=== PATIENT | male | born 1975 | race African-American/Black ===

== ENCOUNTER 2019-04-17 05:14 | Inpatient (IN) | payer OTHER ==
[2019-04-17] VITALS (16 sets, daily range): BP systolic 124–167; BP diastolic 70–109
[~2019-04-17] VITALS: Ht 171.4 cm; Wt 83.5 kg
[~2019-04-17 05:14] MED LIST: IBUPROFEN600 MG ORAL; ceFAZolin sod 2 GM in D5W 110 ML IVPB ONE
[2019-04-17] MEDS ORDERED: LR 1000ml 1,000 ML IVLG SCH (06:18)
[2019-04-17] MEDS ORDERED: Zemuron 50mg/5ml Inj IV ONE (06:25)
[2019-04-17] MEDS ORDERED: Labetalol 5mg/ml 20ml vial IV PRN (06:30)
[2019-04-17] MEDS ORDERED: Ketorolac 30mg Inj IV PRN ×2 (06:30)
[2019-04-17] MEDS ORDERED: Acetaminophen (Non formulary) 100 ML IV ONE (06:30)
[2019-04-17] MEDS ORDERED: DiphenhydrAMINE 50mg/ml Inj IVP PRN (06:30)
[2019-04-17] MEDS ORDERED: Atropine Sulfate 0.4mg/ml inj IVP PRN (06:30)
[2019-04-17] MEDS ORDERED: Midazolam 2mg/2ml Inj IVP PRN (06:30)
[2019-04-17] MEDS ORDERED: oxyCODONE HCL/Acetaminophen 5/325mg ORAL PRN (06:30)
[2019-04-17] MEDS ORDERED: HYDROcodone/Acetamin 7.5/325 tab ORAL PRN ×3 (06:30→07:30)
[2019-04-17] MEDS ORDERED: Hydromorphone 0.5mg/0.5ml inj IVP PRN (06:30)
[2019-04-17] MEDS ORDERED: LORazepam Inj 2mg/ml 1ml IV PRN (06:30)
[2019-04-17] MEDS ORDERED: fentaNYL 100 mcg/2 mL IV PRN (06:30)
[2019-04-17] MEDS ORDERED: Meperidine 50mg/ml Inj(FOR RIGORS ONLY) IVP PRN (06:30)
[2019-04-17] MEDS ORDERED: HYDROcodone/Acetamin 5/325 tab ORAL PRN ×2 (06:30→07:30)
[2019-04-17] MEDS ORDERED: Metoclopramide 10mg/2ml Inj IVP PRN ×2 (06:30→07:30)
[2019-04-17] MEDS ORDERED: Succinylcholine 20mg/ml 10ml vial ONE (06:41)
[2019-04-17] MEDS ORDERED: fentaNYL 100 mcg/2 mL IV ONE ×2 (06:44→09:43)
[2019-04-17] MEDS ORDERED: Vancomycin 1gm vial IVPB ONE (06:46)
[2019-04-17] MEDS ORDERED: Gelfoam Size TOPIC ONE (06:47)
[2019-04-17] MEDS ORDERED: Lidocaine 1% MPF 10mg/ml 5ml ONE (06:47)
[2019-04-17] MEDS ORDERED: Dexamethasone 4mg/ml vial ONE (06:47)
[2019-04-17] MEDS ORDERED: Thrombin 5000 units TOPIC ONE ×2 (06:47→08:53)
[2019-04-17] MEDS ORDERED: Sodium Chloride 10ml vial INJ ONE (06:47)
[2019-04-17] MEDS ORDERED: Bacitracin 50000 Units Vial ONE (06:47)
[2019-04-17] MEDS ORDERED: Lidocaine 1% Plain 30 ml INJ ONE ×2 (06:50→08:52)
[2019-04-17] MEDS ORDERED: Sterile Water Irrig 1000ml IRRIG ONE (07:00)
[2019-04-17] MEDS ORDERED: LR 1000ml ONE (07:00)
[2019-04-17] MEDS ORDERED: Propofol 1,000mg/ 100ml btl IV ONE (07:00)
--- NOTE | 2019-04-17 07:01 | Anethesia Preoperative Eval ---
Anesthesia Pre-op PMH/ROS General Date of Evaluation: Apr 17, 2019 Time of Evaluation: 07:01 Anesthesiologist: Amy ASA Score: ASA 2 Mallampati Score Class I : Soft palate, uvula, fauces, pillars visible Class II: Soft palate, uvula, fauces visible Class III: Soft palate, base of uvula visible Class IV: Only hard plate visible Mallampati Classification: Class II Surgeon: Amy Diagnosis: Neck Pain Surgical Procedure: ACDF C6-7, C5-6, ADR C4-5 Anesthesia History: none Family History: no anesthesia problems Allergies: Coded Allergies: No Known Allergies (Unverified , 04/16/19) Medications: see eMAR Patient NPO?: Yes NPO Date: Apr 16, 2019 NPO Time: 2300 Past Medical History Cardiovascular: Reports: HTN Anesthesia Pre-op Phys. Exam Physician Exam Last Vital Signs Date Time Temp Pulse Resp B/P (MAP) Pulse Ox O2 Delivery O2 Flow Rate FiO2 04/17/19 05:50 97.6 63 20 132/90 (104) 99 04/17/19 05:48 Room Air Constitutional: NAD Neurologic: CN 2-12 intact Cardiovascular: RRR Respiratory: CTA Gastrointestinal: S/NT/ND Airway Exam Mallampati Score: Class II MO: full ROM: limited Teeth: missing, intact Anesthesia Pre-op A/P Risk Assessment & Plan Assessment: ASA 2 Plan: GA, SED, GlideScope Go Status Change Before Surgery: No Pre-Antibiotics Dru Grams Ancef IV Given Within 1 Hr of Incision: Yes Time Given: 07:21 João Reyes MD Apr 17, 2019 07:01
--- NOTE | 2019-04-17 07:03 | Immediate Post-Op Evaluation ---
Immediate Post-Op Evalulation Immediate Post-Op Evalulation Procedure: ACDF C6-7, C5-6, ADR C4-5 Date of Evaluation: Apr 17, 2019 Time of Evaluation: 11:15 IV Fluids: 1000 LR Blood Products: 0 Estimated Blood Loss: 50 Urinary Output: 275 Blood Pressure Systolic: 146 Blood Pressure Diastolic: 85 Pulse Rate: 82 Respiratory Rate: 16 O2 Sat by Pulse Oximetry: 100 Temperature (Fahrenheit): 97.6 Pain Score (1-10): 2 Nausea: No Vomiting: No Complications 0 Patient Status: awake, reacts, patent, extubated, none Hydration Status: adequate Dru Grams Ancef IV Given Within 1 Hr of Incision: Yes Time Given: 07:21 João Reyes MD Apr 17, 2019 07:03
--- NOTE | 2019-04-17 07:18 | Pre-Procedure Note/Attestation ---
Pre-Procedure Note/Attestation Complete Prior to Procedure Planned Procedure: not applicable Procedure Narrative: Cervical 45 artificial disc replacement with C56,and 67 Anterior cervical discectomy and fusion Indications for Procedure Pre-Operative Diagnosis: C45,56,67 herniation Attestation I attest that I discussed the nature of the procedure; its benefits; risks and complications; and alternatives (and the risks and benefits of such alternatives ), prior to the procedure, with the patient (or the patient's legal registered representative). I attest that, if there was a reasonable possibility of needing a blood transfusion, the patient (or the patient's legal registered representative) was given the [facility] standardized written summary, pursuant to the [place] Blood Safety Act ([place] Health and Safety Code # 1645, as amended). I attest that I re-evaluated the patient just prior to the surgery and that there has been no change in the patient's H&P, except as documented below: Rick Martinez MD Apr 17, 2019 07:18
--- NOTE | 2019-04-17 07:19 | Brief Operative Note ---
Immediate Post Operative Note Operative Note Chief Complaint: neck pain and radiculopathy Pre-op Diagnosis: C45,56,67 herniation Procedure: Cervical 45 artificial disc replacement with C56,and 67 Anterior cervical discectomy and fusion Post-op Diagnosis: same as pre-op Findings: consistent w/pre-op dx studies Surgeon: Michelle Lard Tub Washer: Prosper Anesthesia: general Specimen: none Complications: none Condition: stable Fluids: IVF Estimated Blood Loss: minimal Drains: none Implant(s) used?: Yes - Nuvasive interlock cage 6x2, screws 13x6, prodisc c sz5 Rick Martinez MD Apr 17, 2019 07:19
[2019-04-17] MEDS ORDERED: Morphine Sulfate 4mg/ml Inj (IV USE ONLY) IV PRN ×2 (07:30)
[2019-04-17] MEDS ORDERED: HYDROmorphone 1mg/ml Carpuject IVP PRN (07:30)
[2019-04-17] MEDS ORDERED: Morphine Sulfate 2mg/ml Inj(IV/IM USE ONLY) IV PRN (07:30)
[2019-04-17] MEDS ORDERED: Milk of Magnesia 30ml Ud ORAL PRN (07:30)
[2019-04-17] MEDS ORDERED: Naloxone 0.4mg/ml Inj IVP PRN (07:30)
[2019-04-17] MEDS ORDERED: NS Irrig 1000ml IRRIG ONE (08:51)
--- NOTE | 2019-04-17 12:44 | NUR ---
NURSE NOTES: Patient arrived to unit at 1220, accompanied by RN. Received report from Radha LEBRON. Patient is awake but drowsy, arousable to voice, no acute distress noted, reporting no pain. Anterior cervical site with dermabond clean and intact, ice pack in place. VS assessed and stable. SCD's in place. Neuro check assessed intact, patient reporting no numbness/tingling in extremities. IV intact, patient. Family at bedside, updated on plan of care. Side rails upx3, bed low and locked, call light in reach. Will continue to monitor.
[2019-04-17] MEDS: Dexamethasone 4mg/ml vial IVP SCH ×2 (12:52→18:22)
[2019-04-17] MEDS: NS w/KCl 20mEq 1000ml 1,000 ML IV SCH ×2 (13:42→23:00)
--- NOTE | 2019-04-17 14:13 | Diagnostic Imaging Report ---
Indication: Intraoperative imaging Findings: 4 fluoroscopic views of the cervical spine were obtained. Anterior discectomy and fusion demonstrated at C5-6 and C6-7. Replacement of the disc at C4-5 noted. IMPRESSION: Intraoperative imaging
--- NOTE | 2019-04-17 15:05 | NUR ---
CASE MANAGEMENT:REVIEW 43 YR OLD MALE HERE FOR ELECTIVE SURGERY SI: NECK PAIN AND RADICULOPATHY 98.0 91 15 131/85 100% ON 3L/NC IS: CERVICAL DISC REPLACEMENT : TO MED/SURG 3 [facility]
[2019-04-17] MEDS: ceFAZolin sod 1 GM in D5W 55 ML IV SCH ×2 (15:17→22:36)
--- NOTE | 2019-04-17 16:41 | General Progress Note ---
Assessment/Plan Assessment/Plan: C45,56,67 herniation Cervical 45 artificial disc replacement with C56,and 67 Anterior cervical discectomy and fusion PLAN 1. incentive spirometry 2. SCD 3. PT evaluation and therapy 4. Hydration 5. Pain management 6. discharge once stable with outpatient follow up Subjective Allergies: Coded Allergies: No Known Allergies (Unverified , 04/16/19) Subjective asked to follow up post op Objective Last 24 Hour Vital Signs Date Time Temp Pulse Resp B/P (MAP) Pulse Ox O2 Delivery O2 Flow Rate FiO2 04/17/19 15:20 97.9 80 18 140/70 (93) 98 04/17/19 14:20 98.5 85 16 149/98 (115) 100 04/17/19 13:20 97.8 85 16 152/98 (116) 100 04/17/19 12:50 97.8 83 18 146/100 (115) 99 04/17/19 12:20 98.4 89 16 143/98 (113) 100 04/17/19 12:00 98.0 91 15 131/85 100 Nasal Cannula 3 04/17/19 11:45 82 19 138/85 100 Nasal Cannula 3 04/17/19 11:30 82 15 145/95 100 Nasal Cannula 3 04/17/19 11:20 84 20 141/86 100 Simple Mask 6 04/17/19 11:15 86 17 156/91 100 Simple Mask 6 04/17/19 11:10 88 16 142/109 100 Simple Mask 6 04/17/19 11:04 97.2 79 14 146/95 100 Simple Mask 6 04/17/19 11:04 82 16 100 04/17/19 05:50 97.6 63 20 132/90 (104) 99 04/17/19 05:48 Room Air Height (Feet): 5 Height (Inches): 7.50 Weight (Pounds): 184 Objective WDWN NAD clear breath sounds bilaterally without rhonchi or wheeze [id number] without MRG NABS nontender no HSM no CCE nonfocal Joe Cardenas MD Apr 17, 2019 16:41
--- NOTE | 2019-04-17 17:05 | NUR ---
NURSE NOTES: Patient seen by Dr. Cardenas, informed MD that patient's blood pressure is running in the 140's and 150's systolic. MD ordered for clonidine PRN. Order entered. Will continue to monitor.
[2019-04-17] MEDS: Docusate 100mg cap ORAL SCH (18:22)
--- NOTE | 2019-04-17 19:38 | NUR ---
HAND-OFF: Report given to Rolanda LEBRON. Patient is in stable condition.
--- NOTE | 2019-04-17 19:40 | NUR ---
NURSE NOTES: Received report from BERNARDINO Cesar. Patient alert, sitting up in bed, has been ambulating in room without difficulty. Neck incision intact, dry, GLASS CUTTER HAND. IV site intact and patent. Bed in low position, locked, side rails up x2, call light within reach. Will continue to monitor.
[2019-04-17] MEDS: Chloraseptic Spray 20mL Bottle ORAL PRN ×2 (19:57→22:40)
--- NOTE | 2019-04-17 22:00 | Operative Note - Dictated ---
DATE OF OPERATION: 04/17/2019 SURGEON: Rick Martinez M.D., Orthopaedic Spine Surgeon. PROBATION OFFICER: Jennifer Junior PREOPERATIVE DIAGNOSES: 1. Intractable neck pain. 2. Radiculopathy. 3. Herniation, C4-C5, C5-C6, C6-C7. 4. Neural foraminal stenosis, C4-C5, C5-C6, C6-C7. 5. Stenosis. POSTOPERATIVE DIAGNOSES: 1. Intractable neck pain. 2. Radiculopathy. 3. Herniation, C4-C5, C5-C6, C6-C7. 4. Neural foraminal stenosis, C4-C5, C5-C6, C6-C7. 5. Stenosis. PROCEDURE PERFORMED: 1. Anterior cervical discectomy and artificial disc replacement of C4-C5 using a Synthes ProDisc-C size 5 artificial disc replacement. 2. Anterior cervical discectomy and fusion of C5-C6 using NuVasive Interlock C size 6 PEEK cage and three 13 mm screws with Osteocel 1 mL allograft bone and local autograft. 3. Anterior cervical discectomy and fusion of C6-C7 using NuVasive Interlock C size 6 PEEK cage and three 13 mm screws with Osteocel 1 mL allograft bone and local autograft. 4. Use of intraoperative microscope. 5. Motor-evoked potential monitoring. 6. Somatosensory-evoked potential monitoring. 7. Supervision and interpretation of fluoroscopy. COMPLICATIONS: None. ANESTHESIA: General. ESTIMATED BLOOD LOSS: Less than 100 mL. INDICATIONS FOR SURGERY: This patient is a 43-year-old male, who has a history of diagnoses as listed above. As of result of this, the patient sustained intractable neck pain; radiculopathy; herniation of C4-C5, C5-C6, C6-C7; neural foraminal stenosis of C4-C5, C5-C6, C6-C7; and stenosis. We tried a course of conservative management, but despite this course, there was still a significant component of persistent, recalcitrant neck pain and arm pain. The MRI demonstrated significant neural foraminal compromise secondary to disc herniations at C4-C5, C5-C6, and C6-C7. We had a long discussion with Jonathan regarding the risks and benefits of surgery. Our discussion included but was not limited to nonoperative management, chiropractic management, another epidural steroid injection as well as definitive management in the form of surgery. We recommended an artificial disc replacement of cervical C4-C5 and anterior cervical discectomy and fusion of cervical C5-C6 and C6-C7 as final definitive management. We reviewed the risks and benefits of surgery with the patient. Our discussion included a comprehensive review of the clinical issues and the nature of the clinical decision. We reviewed the alternatives, including doing nothing. The patient elected to proceed accordingly with an artificial disc replacement of cervical C4-C5 and anterior cervical discectomy and fusion of cervical C5-C6 and C6-C7. We had a long discussion regarding the risks, alternatives, and benefits of surgery. Our description of the risks included a discussion in person as well as a signed consent which detailed all pertinent risks from the procedure itself. Briefly, our discussion included but was not limited to infection, bleeding, pseudarthrosis, spinal cord injury, neurovascular injury, dural tear, CSF leak, neuropathy, paralysis, permanent weakness/drop foot/drop arm, paresthesias, blindness, palsy, and weakness. The patient understood there may be a need for a revision surgery or additional procedures. Approach-related complications including dysphonia, dysphagia, blindness, permanent vocal cord and neural injury, hematoma, swallowing and breathing difficulty. Medical complications were reviewed including liver, kidney, shock, cardiopulmonary failure, anesthesia complications including , swelling, damage to the musculature, larynx/voice injury or loss, esophagus/throat, trachea, blood vessels and muscles/muscular sprain and lungs/pneumothorax during this surgical procedure; injury to deeper structures may be temporary or permanent. After this review of risks, the patient understood these and elected to proceed. A written and verbal consent was given. We discussed the pros and cons of all the alternatives. We discussed the uncertainties associated with the decision. Afterwards, I assessed the patient's understanding and explored their preferences. All questions were answered and no guarantees were given. Medical clearance was obtained prior to surgery. INTRAOPERATIVE FINDINGS: At C4-C5, there was a very large disc herniation, which was causing severe pressure on both the spinal cord and neural foramina bilaterally, right more than left sided. Upon dissection through the actual disc itself as we marginated towards the posterior margin of the disc, I noticed a tear in the PLL, which was approximately 20 degrees cephalad to caudad. This tear was mobilized with a Microsect 1-B curette and posterior to this tear, I noticed a very large herniated fragment, which was encroaching on the thecal sac and spinal cord completely, right-sided. Again, the tear was through the PLL and posterior to this, I noted herniated fragment and tissue. At C5-C6, I noted the disc to be soft, not calcified, not degenerated. Along the posterior margin of the PLL, there was a tear in the posterior longitudinal ligament. This tear was approximately 20-30 degrees cephalad to caudad on the right side of the neural foramina in the PLL. This was probed with Microsect 1-B and 2-B and posterior to this tear, I noted a large disc fragment, which was encroaching on the thecal sac and spinal cord, more on the right neural foramina. The disc itself was soft, mobile, and noncalcified, not degenerated. At C6-C7, there was a tear noted in the posterior longitudinal ligament. This tear was approximately 20 degrees cephalad to caudad, which was right-sided. Through this tear, I would state, it involved the junction of the central to the right side of the posterior longitudinal ligament along the lateral third margin. Once this tear was probed with Microsect 1-B and 2-B curettes, I noticed the posterior limb of the disc herniation, which was resected with a combination of Bullock pituitary, Kerrison rongeurs and this demonstrated significant pressure on the spinal cord posteriorly, which was very tight and flattened as a result of these herniations as well as the neural foramina, right more than left sided. This was very concerning from the standpoint of how much pressure we encountered. On the MRI, we evaluated that there was severe pressure, but this was even more significant than that. At the beginning of our case, we were able to obtain very mild response to his motor response, however, this was the maximum intensity of the electrosignals inputs. Throughout the case, there was no complication or any pressure applied to the thecal sac itself whatsoever; however, at the completion of the case, either he had too much sedation, but we were not able to obtain motor signals afterwards. DESCRIPTION OF PROCEDURE: Under the benefit of general endotracheal anesthesia and with the assistance of the entire operative team, the patient was moved from the rney onto the operative table in the supine position. The head was secured and carefully positioned appropriately. Bilateral arms were secured with Gel Pads and foam and all bony prominences were padded. For the bilateral lower extremities, SCD and KYARA hose were placed for DVT prophylaxis. A surgical timeout was called which corroborated our planned procedure of an artificial disc replacement of cervical C4-C5 and anterior cervical discectomy and fusion of cervical C5-C6 and C6-C7. Preoperative antibiotics were administered within 30 minutes of the incision for antibiotic prophylaxis. Using lateral fluoroscopic radiography, the operative levels were delineated. Next, the wound was prepped and draped with chlorhexidine and sterile drapes. An incision was based on lateral fluoroscopy and we centered our incision at the C4-to 7 interspace and next, using a standard Mena-Wong anterior-based approach, the incision was taken down through the skin and subcutaneous tissues until the vertebral bodies and their corresponding disc spaces were visualized. A needle was placed into the interspace to confirm placement of the operative interspace and we performed the remainder of procedure under microscopic visualization. Next, using bipolar and Bovie cautery to ensure meticulous hemostasis, the longus colli was mobilized bilaterally and retractors were placed deep to the longus colli bilaterally to address retraction. Next, we turned our attention to the radical anterior discectomy. This was initially performed at C4-C5 first by using a 15 blade scalpel followed by narrow pituitaries and a Microsect 5-B curette was used to denude the endplate of all cartilaginous tissue. Next, using a [employer] AM8 drill bit, the vertebral endplates were denuded of all residual cartilage in a myje-ew-udrk and jtlol-hb-vssqe fashion, and ultimately the posterior uncinate joints bilaterally and posterior osteophytic lips and margins were carefully denuded until clear visualization of the posterior longitudinal ligament was possible. An endplate preparation was performed in the exact same fashion using an intervertebral spray drier, sequential distraction was obtained throughout the disc space. We saw a tear/rent in the PLL and this was carefully mobilized and dissected using a Microsect 1-B curette until we visualized a discrete disc herniation with compression of the spinal cord as well as neural foramina bilaterally, right more than left sided. At C4-C5, there was a very large disc herniation, which was causing severe pressure on both the spinal cord and neural foramina bilaterally, right more than left sided. Upon dissection through the actual disc itself as we marginated towards the posterior margin of the disc, I noticed a tear in the PLL, which was approximately 20 degrees cephalad to caudad. This tear was mobilized with a Microsect 1-B curette and posterior to this tear, I noticed a very large herniated fragment, which was encroaching on the thecal sac and spinal cord completely, right-sided. Again, the tear was through the PLL and posterior to this, I noted herniated fragment and tissue. This neural foraminal compression was carefully resected using a Kerrison-1 and Kerrison-2 rongeurs until complete decompression of the spinal cord was visualized and complete decompression of the neural foramina and nerve root therein as well as the axilla and lateral margin of the nerve root was visualized and subsequently completely decompressed. The family was notified at one-hour intervals throughout the procedure to provide for consistent updates. We next turned our attention towards trialing our implant within the disc space. We initially tried size 5 and this ProDisc Cervical spacer fit well in regard to depth and width. This implant was opened and prepared. Next, under direct visualization, I confirmed excellent fit in respect to the anterior and posterior vertebral bodies, the uncinate joints, and in regard to toggle. Once satisfied with this placement on serial AP and lateral fluoroscopy, I turned my attention towards cutting our kisha. These were cut in the bones using a reciprocating drill and afterwards all free fragments of bone were irrigated. Next, FloSeal was placed into the interspace, then removed in its entirety and the implant was inserted using fluoroscopic guidance. Next, the Synthes ProDisc-C size 5 ADR was then carefully advanced and secured into the intervertebral space under direct visualization and with supervision of AP and lateral fluoroscopic views. Next we turned our attention to the radical anterior discectomy at the C5-C6 first by using a 15 blade scalpel followed by narrow pituitaries and a Microsect 5-B curette was used to denude the endplate of all cartilaginous tissue. Next, using a [employer] AM8 drill bit, the vertebral endplates were denuded of all cartilaginous tissue in a quie-jh-nibs and wuomf-ox-jqtnh fashion, and ultimately the posterior uncinate joints bilaterally and posterior osteophytic lips and margins were carefully denuded until wide and thorough visualization of the posterior longitudinal ligament was possible. At this level, the endplate preparation was performed in the exact same fashion using an intervertebral spray drier, sequential distraction was obtained throughout the disc space. We saw a tear/rent in the PLL which was concerning. At C5-C6, I noted the disc to be soft, not calcified, not degenerated. Along the posterior margin of the PLL, there was a tear in the posterior longitudinal ligament. This tear was approximately 20-30 degrees cephalad to caudad on the right side of the neural foramina in the PLL. This was probed with Microsect 1-B and 2-B and posterior to this tear, I noted a large disc fragment, which was encroaching on the thecal sac and spinal cord, more on the right neural foramina. The disc itself was soft, mobile, and noncalcified, not degenerated. This was carefully mobilized and dissected using a Microsect 1-B curette until we visualized an obvious disc herniation with compression of the spinal cord as well as neural foramina which was right more than left sided. This neural foraminal compression was carefully resected using a Kerrison-1 and Kerrison-2 rongeurs until complete decompression of the spinal cord was visualized and complete decompression of the neural foramina and nerve root therein as well as the axilla and lateral margin of the nerve root was visualized and subsequently completely decompressed. Next we turned our attention to the radical anterior discectomy at the C6-C7 level first by using a 15 blade scalpel followed by narrow pituitaries and a Microsect 5-B curette was used to denude the endplate of all cartilaginous tissue. Next, using a [employer] AM8 drill bit, the vertebral endplates were denuded of all cartilaginous tissue in a lxfr-ey-ehor and jikpz-sk-jeslm fashion, and ultimately the posterior uncinate joints bilaterally and posterior osteophytic lips and margins were carefully denuded until wide and thorough visualization of the posterior longitudinal ligament was possible. At this level, the endplate preparation was performed in the exact same fashion using an intervertebral spray drier, sequential distraction was obtained throughout the disc space. We again saw a tear/rent in the PLL. At C6-C7, there was a tear noted in the posterior longitudinal ligament. This tear was approximately 20 degrees cephalad to caudad, which was right-sided. Through this tear, I would state, it involved the junction of the central to the right side of the posterior longitudinal ligament along the lateral third margin. Once this tear was probed with Microsect 1-B and 2-B curettes, I noticed the posterior limb of the disc herniation, which was resected with a combination of Bullock pituitary, Kerrison rongeurs and this demonstrated significant pressure on the spinal cord posteriorly, which was very tight and flattened as a result of these herniations as well as the neural foramina, right more than left sided. This was very concerning from the standpoint of how much pressure we encountered. On the MRI, we evaluated that there was severe pressure, but this was even more significant than that. Anyways this was carefully mobilized and dissected using a Microsect 1-B curette until we visualized an obvious disc herniation with compression of the spinal cord as well as neural foramina which was right more than left sided. This neural foraminal compression was carefully resected using a Kerrison-1 and Kerrison-2 rongeurs until complete decompression of the spinal cord was visualized and complete decompression of the neural foramina and nerve root therein as well as the axilla and lateral margin of the nerve root was visualized and subsequently completely decompressed. We next turned our attention towards trialing our implant within the disc space. We initially tried size 5 and afterwards size 6 trial from the NuVasive Interlock system at C5-C6 and C6-C7 level, which appeared to be appropriate under AP and lateral fluoroscopy as well as in terms of its height, depth, width, and lack of toggle. The PEEK (polyetheretherketone) interbody cages were then both packed with allograft bone from Osteocel and local autograft bone matrix. Next, these were then carefully advanced and secured into their intervertebral spaces under direct visualization and with supervision of AP and lateral fluoroscopic views. We next turned our attention towards plating. Plating was performed at C5-C6 level with the NuVasive Interlock-C plating system. A total of three screws, size 13 mm in length were inserted and confirmed under AP and lateral fluoroscopy and confirmed to be in excellent position. This was then performed at next level, C6-C7. Plating was performed at C6-C7 level with the NuVasive Interlock-C plating system. A total of three screws, size 13 mm in length were inserted and confirmed under AP and lateral fluoroscopy and confirmed to be in excellent position. At the beginning of our case, we were able to obtain very mild response to his motor response, however, this was the maximum intensity of the electrosignals inputs. Throughout the case, there was no complication or any pressure applied to the thecal sac itself whatsoever; however, at the completion of the case, either he had too much sedation, but we were not able to obtain motor signals afterwards. After a finger sweep, we confirmed removal of all sponges. The retractor was removed and we next turned our attention to meticulous hemostasis with FloSeal and bipolar cautery. After the sponge and needle count was again found to be correct with our second count, we next turned our attention to closure. The wound was again copiously irrigated with antibiotic-impregnated saline. Closure consisted of 4-0 clear nylon for the platysma, and 5-0 clear nylon for the superficial skin. Final skin closure and dressings consisted of Dermabond. Prior to final closure, a final radiograph was obtained which demonstrated the hardware was intact with excellent position throughout. The patient tolerated the procedure well. The patient was carefully extubated after the conclusion of surgery. We discussed the findings of the surgery with the family upon completion of the case. At this point, the patient was transferred to the spine floor for further observation. NOTE: Upon the conclusion of the procedure, the patient was able to demonstrate movement of the upper and lower extremities. Rick Martinez M.D. DR: AIXA JOB#: [id number] CC: [place]
[2019-04-18] VITALS: BP 128/77
[2019-04-18] MEDS: Dexamethasone 4mg/ml vial IVP SCH ×2 (00:01→06:25)
--- NOTE | 2019-04-18 00:30 | NUR ---
NURSE NOTES: patient awake, alert x 4. Patient drinking fluids. Call light is at bedside. Will continue plan of care.
[2019-04-18 04:00] VITALS: BP 123/73
[2019-04-18] MEDS: Chloraseptic Spray 20mL Bottle ORAL PRN (06:25)
--- NOTE | 2019-04-18 06:32 | NUR ---
NURSE NOTES: Patient is awake, alert. Given routine IVP medication and chloraseptic spray for patient comfort. Call light is at bedside. Will continue plan of care.
[2019-04-18] MEDS: ceFAZolin sod 1 GM in D5W 55 ML IV SCH (07:00)
--- NOTE | 2019-04-18 07:30 | NUR ---
NURSE NOTES: Received report from Rolanda LEBRON. Patient is awake and oriented, no acute distress noted, not reporting any pain except for mild throat discomfort. Anterior cervical surgical site clean and dry. Patient eating well and voiding normally. SCD's in place. Right hand IV intact, patent. Needs met at this time, updated on plan of care for the day. Side rails upx2, bed low and locked, call light in reach. Will continue to monitor.
[2019-04-18 08:00] VITALS: BP 145/97
[2019-04-18] MEDS: Docusate 100mg cap ORAL SCH (09:08)
[2019-04-18] MEDS ORDERED: NORCO 10-325 T1 EACH ORAL (10:46)
--- NOTE | 2019-04-18 11:28 | General Progress Note ---
Assessment/Plan Assessment/Plan: C45,56,67 herniation Cervical 45 artificial disc replacement with C56,and 67 Anterior cervical discectomy and fusion PLAN 1. incentive spirometry 2. SCD 3. PT evaluation and therapy 4. Hydration 5. Pain management 6. discharge home today dc instructions given impression, plan, and exam edited and reviewed in detail care discussed with RN Subjective Allergies: Coded Allergies: No Known Allergies (Unverified , 04/16/19) Subjective doing well reviewed care Objective Last 24 Hour Vital Signs Date Time Temp Pulse Resp B/P (MAP) Pulse Ox O2 Delivery O2 Flow Rate FiO2 04/18/19 09:00 Room Air 04/18/19 08:00 98.4 80 16 145/97 (113) 100 04/18/19 04:00 98.1 70 19 123/73 (90) 98 04/18/19 00:00 97.4 83 18 128/77 (94) 98 04/17/19 22:20 124/75 (91) 04/17/19 21:00 Room Air 04/17/19 20:26 157/91 04/17/19 20:25 80 157/91 (113) 04/17/19 20:00 98.7 84 18 167/105 (125) 98 04/17/19 15:20 97.9 80 18 140/70 (93) 98 04/17/19 14:20 98.5 85 16 149/98 (115) 100 04/17/19 13:20 97.8 85 16 152/98 (116) 100 04/17/19 12:50 97.8 83 18 146/100 (115) 99 04/17/19 12:20 98.4 89 16 143/98 (113) 100 04/17/19 12:00 98.0 91 15 131/85 100 Nasal Cannula 3 04/17/19 11:45 82 19 138/85 100 Nasal Cannula 3 04/17/19 11:30 82 15 145/95 100 Nasal Cannula 3 Intake and Output 04/17/19 04/18/19 18:59 06:59 Intake Total 2155 ml 1255 ml Output Total 50 ml 1000 ml Balance 2105 ml 255 ml Intake Oral 600 ml 800 ml IV Total 1555 ml 455 ml Output Urine Total 1000 ml Estimated Blood Loss 50 ml # Voids 3 2 Height (Feet): 5 Height (Inches): 7.50 Weight (Pounds): 184 Objective WDWN NAD clear breath sounds bilaterally without rhonchi or wheeze [id number] without MRG NABS nontender no HSM no CCE nonfocal Joe Cardenas MD Apr 18, 2019 11:28
--- NOTE | 2019-04-18 11:37 | NUR ---
PT Note PT samson completed. Patient is independent in all mobility and gait without any AD. Pt was instructed on cervical precautions and HEP's. He was able to demonstrate and verbalized his understanding. Addendum: 04/18/19 at 1137 by HOOD DUMAS PT Amended: Links added.
[2019-04-18 12:00] VITALS: BP 146/103
--- NOTE | 2019-04-18 13:06 | NUR ---
NURSE NOTES: Patient was cleared by physical therapy and discharged per MD order. Patient stable on discharge, ambulatory with steady gait, VS stable. Reviewed discharge instructions/education handouts with patient and patient reported understanding of provided education. Patient given Rx and signed for Rx. IV removed intact. Patient escorted off unit by RN with patient's family to private vehicle. Patient will be driven home by family.
--- NOTE | 2019-04-18 20:45 | Discharge Summary ---
DATE OF ADMISSION: 04/17/2019 DATE OF DISCHARGE: 04/18/2019 PROCEDURE PERFORMED DURING ADMISSION: 1. Artificial disc replacement, C4-C5. 2. Anterior cervical discectomy and fusion, C5-C6, C6-C7. REASON FOR ADMISSION: Herniated discs, C4-C5, C5-C6, C6-C7. DISCHARGE PHYSICAL EXAMINATION: 1. The patient was ambulating with and without the assistance of physical therapy. 2. Prior to discharge home, incision was clean and dry with minimal swelling. 3. Follows commands. 4. Alert and oriented. 5. Frankel discontinued, voiding. 6. Incentive spirometer at bedside. 7. IVF hep-locked. MOTOR: Demonstrates expected postoperative bulk and tone. Moves biceps, triceps, and deltoid musculature on command. Moves hip flexors, quadriceps, tibialis anterior, EHL, gastrocsoleus musculature on command as well. TREATMENT RENDERED: 1. Daily nursing care. 2. Physical therapy. 3. Occupational therapy. 4. Intravenous medications. 5. Oral medications. 6. Daily postoperative examinations by Spine Surgery team. CONDITION OF PATIENT ON DISCHARGE: The condition on discharge is stable for discharge to home. DISCHARGE INSTRUCTIONS: Our specific instructions relating to physical activity, medications, diet, and follow-up care are detailed in our standard operative folder and were given to this patient prior to surgery. We will however summarize these briefly as stated below. Regarding physical activity, we would like the patient to limit his flexion, extension, and rotation. We also require a limitation on his bending, lifting, and twisting. All medication has been called in prior to surgery to their pharmacy of choice. They can resume their regular diet once tolerated. We would like them to shower and limit soaking the wound in a tub/Jacuzzi/the ocean for a period of one month or until the incision is completely healed. We will have him follow up in our office in 3 weeks' time for his regularly scheduled appointment. They understand to call our office tomorrow to schedule the time for his 3-week followup appointment. The patient will notify us should they experience any increase in the severity of pain, redness, swelling, or drainage from their incision. Rick Martinez M.D. DR: Johnna JOB#: [id number] CC:
--- NOTE | 2019-04-19 13:44 | 48 Hour Post Anesthesia Eval ---
Post Anesthesia Evaluation Procedure: ACDF C6-7, C5-6, ADR C4-5 Date of Evaluation: Apr 19, 2019 Nausea: No Vomiting: No Ana Mcdaniel MD Apr 19, 2019 13:44
== END 2019-04-18 12:45 | disposition home or self-care (01) | DRG 473 ==
LOC: SDSOVERFLO 05:14 → 3E 12:31
DX: M50.121 Cervical disc disorder at C4-C5 level with radiculopathy (principal); M48.02 Spinal stenosis, cervical region; Z72.0 Tobacco use; E66.3 Overweight
CPT/HCPCS: 36415; 72040; 76000; 86850; 86900; 86901; 87081; 94003; 94150; J2405